=== PATIENT | male | born 1980 | race Two or more races ===

== ENCOUNTER 2022-12-20 11:48 | Emergency (ER) | payer BC ==
[2022-12-20] MEDS ORDERED: diazePAM 2 MG TABLET PO ONE (11:56)
[2022-12-20] MEDS ORDERED: diazePAM 2 MG TABLET ONE (11:58)
[2022-12-20 12:17] VITALS: BP 129/76; PULSE 97; RESP 18; TEMP 98.8; BMI 22.0
== END 2022-12-20 13:14 | disposition home or self-care (01) ==
LOC: FER 11:48
DX: R07.81 Pleurodynia (principal); R06.02 Shortness of breath; F41.9 Anxiety disorder, unspecified
CPT/HCPCS: 71046-TC-FY; 93005; 99284-25